=== PATIENT | male | born 1975 | race Caucasian/White ===

== ENCOUNTER 2018-05-11 15:11 | Emergency (ER) | payer SELFPAY ==
[~2018-05-11] VITALS: Ht 177.8 cm; Wt 95.4 kg
[2018-05-11 15:13] VITALS: BP 148/96
[2018-05-11] MEDS ORDERED: SULFAMETH./TRIMETHOPRIM DS 800MG/160MG TABLET PO ONE (16:30)
[2018-05-11] MEDS ORDERED: SULFAMETH./TRIMETHOPRIM DS 800MG/160MG TABLET ONE (16:33)
== END 2018-05-11 17:23 | disposition home or self-care (01) ==
LOC: ED 17:00
DX: S90.821A Blister (nonthermal), right foot, initial encounter (principal); S90.822A Blister (nonthermal), left foot, initial encounter; F17.200 Nicotine dependence, unspecified, uncomplicated; X58.XXXA Exposure to other specified factors, initial encounter; Y93.89 Activity, other specified; Y92.89 Other specified places as the place of occurrence of the external cause; Y99.8 Other external cause status
CPT/HCPCS: 99283